=== PATIENT | male | born 1945 | race American Indian/Alaskan Native ===

== ENCOUNTER 2019-11-27 22:17 | Emergency (ER) | payer MEDICARE ==
[~2019-11-27 22:17] MED LIST: CALCIUM CHLORIDE 1,000 MG/10 ML SYRINGE IV ONE; EPINEPHrine 1 MG/10 ML SYRINGE ONE; SODIUM BICARB 8.4% 50 MEQ/50 ML SYRINGE IV ONE
--- NOTE | 2019-11-27 22:40 | Emergency Department Report ---
ED CPR HPI - General Chief Complaint: Cardiac Arrest/CPR Stated Complaint: CARDIAC ARREST Time Seen by Provider: 11/27/19 22:28 Source: EMS (Verbal report received from emergency medical services. EMS documentation not available at time of chart dictation ), RN notes reviewed, old records reviewed Mode of arrival: Stretcher Limitations: Altered Mental Status, Physical Limitation, Other - History of Present Illness Initial Comments: The patient was evaluated in the emergency department for symptoms described in the history of present illness. He/she was evaluated in the context of the global COVID-19 pandemic, which necessitated consideration that the patient might be at risk for infection with the virus that causes COVID-19. Institutional protocols and algorithms that pertain to the evaluation of patients at risk for COVID-19 are in a state of rapid change based on information released by regulatory bodies including the CDC and federal and state organizations. These policies and algorithms were followed during the patient's care in the emergency department. Please note that these policies, procedures and recommendations changed on a rapid basis. The patient is a 73-year-old gentleman. He is brought to the hospital by emergency medical services as an out of hospital cardiac arrest. EMS reports that the patient was reportedly having trouble breathing, and collapsed. They state that bystanders did not initiate CPR. They state that when they arrived, the patient was not breathing, and did not have a pulse. Patient had an oral pharyngeal airway placed, received [id number] ventilation, had a left lower extremity IO placed, and received aggressive chest compressions via a mechanical Jay device. Patient received epinephrine x2. Patient has remained in pulseless electrical activity during the entirety of his transport, which EMS estimates as 10 to 15 minutes. They estimate that patient was pulseless for at least 10 to 15 minutes prior to their arrival. Upon arrival to this emergency room, patient's pupils are fixed, midpoint, and do not react to light. He does not have a palpable pulse. He is receiving h igh-quality CPR. Standard ACLS interventions are continued. No pulses are obtained. Rhythm is asystole. Resuscitation efforts are terminated secondary to medical futility. No family is available at this time for additional information or collateral information. Complaint: stopped breathing -: minute(s) Place: home Bystander CPR Performed: No Initial Findings in the Field: no respirations, no pulse, PEA ROSC in the Field: No Associated Injuries: No Treatments Prior to Arrival: BMV, other airway device, chest compressions, epinephrine mgs # - Related Data Home Medications Medication Instructions Recorded Confirmed Last Taken Aspirin [Aspirin BABY CHEW TAB] 162 mg PO QDAY 05/09/15 09/04/15 1 Day Ago ~05/08/15 Previous Rx's Medication Instructions Recorded Last Taken Type Lispro Insulin [HumaLOG] 0 unit SUB-Q ACHS #30 units 07/21/19 Unknown Rx Losartan [Cozaar] 100 mg PO QDAY #30 tablet 07/21/19 Unknown Rx Tamsulosin [Flomax] 0.4 mg PO QDAY capsule 07/21/19 Unknown Rx Tamsulosin [Flomax] 0.4 mg PO QDAY #30 cap 07/21/19 Unknown Rx amLODIPine 10 mg PO DAILY #30 07/21/19 Unknown Rx carvediloL [Coreg] 6.25 mg PO BID #60 07/21/19 Unknown Rx levoFLOXacin [Levaquin TAB] 500 mg PO Q24HR #7 tablet 07/21/19 Unknown Rx Allergies Allergy/AdvReac Type Severity Reaction Status Date / Time No Known Allergies Allergy Verified 09/04/15 07:47 ED Review of Systems ROS: Stated complaint: CARDIAC ARREST Other details as noted in HPI Comment: Unobtainable due to pts medical conditions ED Past Medical Hx - Past Medical History Hx Hypertension: Yes Hx Arthritis: Yes Additional medical history: urinatary problems - Surgical History Additional Surgical History: BILATERAL HIP REPLACEMENT - Social History Smoking Status: Never Smoker - Medications Home Medications: Home Medications Medication Instructions Recorded Confirmed Last Taken Type Aspirin [Aspirin BABY CHEW TAB] 162 mg PO QDAY 05/09/15 09/04/15 1 Day Ago History ~05/08/15 Lispro Insulin [HumaLOG] 0 unit SUB-Q ACHS #30 units 07/21/19 Unknown Rx Losartan [Cozaar] 100 mg PO QDAY #30 tablet 07/21/19 Unknown Rx Tamsulosin [Flomax] 0.4 mg PO QDAY capsule 07/21/19 Unknown Rx Tamsulosin [Flomax] 0.4 mg PO QDAY #30 cap 07/21/19 Unknown Rx amLODIPine 10 mg PO DAILY #30 07/21/19 Unknown Rx carvediloL [Coreg] 6.25 mg PO BID #60 07/21/19 Unknown Rx levoFLOXacin [Levaquin TAB] 500 mg PO Q24HR #7 tablet 07/21/19 Unknown Rx ED Physical Exam - General Limitations: Altered Mental Status, Physical Limitation General appearance: obese - Head Head exam: Present: atraumatic, normocephalic - Eye Eye exam: Present: other (Pupils midpoint, and do not react to light) - ENT ENT exam: Present: mucous membranes moist, other (Oral pharyngeal airway is noted) - Neck Neck exam: Present: normal inspection - Respiratory Respiratory exam: Absent: normal lung sounds bilaterally (Patient is now breathing spontaneously), respiratory distress - Cardiovascular Cardiovascular Exam: Absent: regular rate, normal rhythm (The patient is pulseless), systolic murmur, diastolic murmur, rubs, gallop - GI/Abdominal GI/Abdominal exam: Present: soft - Rectal Rectal exam: Present: deferred - Extremities Exam Extremities exam: Present: normal inspection, other (Intraosseous line noted in the left lower extremity) - Back Exam Back exam: Present: normal inspection - Neurological Exam Neurological exam: Present: alert, other (Nonverbal, GCS of 3) - Skin Skin exam: Present: dry ED Medical Decision Making - Medical Decision Making Differential diagnosis, including but not limited to: Arrhythmia, acute coronary syndrome, congestive heart failure, intracranial hemorrhage, pulmonary embolism Critical care attestation.: If time is entered above; I have spent that time in minutes in the direct care of this critically ill patient, excluding procedure time. ED Disposition Clinical Impression: Cardiac arrest Disposition: [id number] Is pt being admited?: No Does the pt Need Aspirin: No Condition: Undetermined Referrals: PRIMARY CARE, [Primary Care Provider] - 3-5 Days
== END 2019-11-28 06:20 ==
LOC: ED 22:17
DX: I46.9 Cardiac arrest, cause unspecified (principal); I10 Essential (primary) hypertension; M19.90 Unspecified osteoarthritis, unspecified site; Z98.890 Other specified postprocedural states; Z79.82 Long term (current) use of aspirin; Z79.899 Other long term (current) drug therapy
CPT/HCPCS: 92950; 99285; J0171